=== PATIENT | male | born 1995 | race Caucasian/White ===

== ENCOUNTER 2016-09-26 09:40 | Day surgery (SDC) | payer OTHER ==
--- NOTE | 2016-09-19 10:42 | RADIOLOGY REPORT (SQ) ---
EXAM DESCRIPTION: CHEST PA/LATERAL COMPLETED DATE/TIME: 09/19/2016 10:27 am REASON FOR STUDY: PRE OP COMPARISON: None. EXAM PARAMETERS: NUMBER OF VIEWS: two views TECHNIQUE: Digital Frontal and Lateral radiographic views of the chest acquired. RADIATION DOSE: NA LIMITATIONS: none FINDINGS: LUNGS AND PLEURA: No opacities, masses or pneumothorax. No pleural effusion. What appears to be a small granuloma is present in the right upper lobe. MEDIASTINUM AND HILAR STRUCTURES: No masses or contour abnormalities. HEART AND VASCULAR STRUCTURES: Heart normal size. No evidence for failure. BONES: No acute findings. HARDWARE: None in the chest. OTHER: No other significant finding. IMPRESSION: NO SIGNIFICANT RADIOGRAPHIC FINDING IN THE CHEST. TECHNICAL DOCUMENTATION: JOB ID: [id number] [employer]- All Rights Reserved
[2016-09-19 11:13] LABS: ABSOLUTE EOSINOPHILS # (AUTO) 0.1 10^3/uL (0.0-0.6); ABSOLUTE LYMPHOCYTES (AUTO) 2.3 10^3/uL (0.5-4.7); ABSOLUTE MONOCYTES (AUTO) 0.7 10^3/uL (0.1-1.4); ABSOLUTE NEUT (AUTO) 4.3 10^3/uL (1.7-8.2); BASOPHILS % (AUTO) 0.4 % (0-2); EOSINOPHILS % (AUTO) 0.9 % (0-6); HEMOGLOBIN 16.6 g/dL (13.5-17.0); HGB HCT DIFFERENCE 2.8; LYMPHOCYTES % (AUTO) 31.5 % (13-45); MEAN CORPUSCULAR HEMOGLOBIN 31.4 pg (27.0-33.4); MEAN CORPUSCULAR HGB CONC 35.2 g/dL (32.0-36.0); MEAN CORPUSCULAR VOLUME 89 fl (80-97); MONOCYTES % (AUTO) 9.1 % (3-13); RED BLOOD COUNT 5.28 10^6/uL (4.35-5.55); RED CELL DISTRIBUTION WIDTH 12.3 % (11.5-14.0); SEGMENTED NEUTROPHILS % (AUTO) 58.1 % (42-78); WHITE BLOOD COUNT 7.3 10^3/uL (4.0-10.5)
[2016-09-19 11:14] LABS: APPEARANCE,URINE CLEAR; BILIRUBIN,URINE NEGATIVE (NEGATIVE); GLUCOSE, URINE NEGATIVE (NEGATIVE); KETONES,URINE NEGATIVE (NEGATIVE); LEUKOCYTE ESTERASE,URINE NEGATIVE (NEGATIVE); NITRITE,URINE NEGATIVE (NEGATIVE); PROTEIN,URINE NEGATIVE (NEGATIVE); URINE SPECIFIC GRAVITY 1.011; UROBILINOGEN,URINE NEGATIVE mg/dL (<2.0)
[2016-09-19 11:33] LABS: ANION GAP 12 (5-19); BLOOD UREA NITROGEN 15 mg/dL (7-20); CALCIUM 10.2 mg/dL (8.4-10.2); CARBON DIOXIDE 26 mmol/L (22-30); CHLORIDE 103 mmol/L (98-107); CREATININE RESULT 0.95 mg/dL (0.52-1.25); GLUCOSE 79 mg/dL (75-110); POTASSIUM 4.3 mmol/L (3.6-5.0); SODIUM 141.3 mmol/L (137-145)
--- NOTE | 2016-09-19 13:08 | EKG REPORT ---
SEVERITY:- NORMAL ECG - SINUS RHYTHM : Confirmed by: Dago Quintero MD 19-Sep-2016 13:07:12
[~2016-09-26 09:40] MED LIST: LIDOCAINE 0.5% INJ-PF (5 MG/ML) 50 ML SDV INJ PRN; RINGERS SOLUTION,LACTATED 1,000 ML IV PRN; VANCOMYCIN HCL 1,000 MG in DEXTROSE 5%-WATER 250 ML IV PRN
[2016-09-26] MEDS ORDERED: DEXAMETHASONE SOD PHOSPHATE INJ 4 MG/1 ML VIAL ONE (10:03)
[2016-09-26] MEDS ORDERED: ROCURONIUM BROMIDE INJ 50 MG/5 ML VIAL IV ONE (10:03)
[2016-09-26] MEDS ORDERED: GLYCOPYRROLATE INJ 0.4 MG/2 ML VIAL ONE (10:03)
[2016-09-26] MEDS ORDERED: LIDOCAINE 2% INJ-PF (20 MG/ML) 10 ML AMPUL ONE (10:03)
[2016-09-26] MEDS ORDERED: KETOROLAC TROMETHAMINE 60 MG/2 ML SDV ONE (10:03)
[2016-09-26] MEDS ORDERED: ONDANSETRON HCL INJ/PF 4 MG/2 ML SDV ONE (10:03)
[2016-09-26] MEDS ORDERED: NEOSTIGMINE METHYLSULFATE 10 MG/10 ML VIAL ONE (10:03)
[2016-09-26] MEDS ORDERED: SUCCINYLCHOLINE CHLORIDE INJ 200 MG/10 ML VIAL ONE (10:03)
[2016-09-26] MEDS ORDERED: ALBUTEROL SULFATE 0.083% NEB 2.5 MG/3 ML AMPUL NEB ONE (11:02)
[2016-09-26] MEDS ORDERED: FENTANYL CITRATE INJ/PF 100 MCG/2 ML AMPUL ONE ×3 (11:42→14:57)
[2016-09-26] MEDS ORDERED: FENTANYL CITRATE INJ/PF 250 MCG/5 ML AMPULE ONE (11:42)
[2016-09-26] MEDS ORDERED: MIDAZOLAM 2 MG/2 ML INJ ONE (11:43)
[2016-09-26] MEDS ORDERED: ACETAMINOPHEN 100 ML IV ONE (11:43)
[2016-09-26] MEDS ORDERED: MORPHINE SULFATE 10 MG/ML INJ ONE (11:43)
[2016-09-26] MEDS ORDERED: PROPOFOL INJ 200 MG/20 ML VIAL IV ONE (11:43)
[2016-09-26] MEDS ORDERED: BUPIVACAINE HCL 0.5 % INJ/PF 30 ML SDV ONE (12:11)
[2016-09-26] MEDS ORDERED: EPINEPHRINE INJ/PF 1 MG/1 ML AMPULE ONE ×2 (12:11→13:49)
[2016-09-26] MEDS ORDERED: FENTANYL CITRATE INJ/PF 100 MCG/2 ML AMPUL IV PRN ×3 (12:30)
[2016-09-26] MEDS ORDERED: PROMETHAZINE HCL INJ 25 MG/1 ML VIAL IV PRN ×2 (12:30)
[2016-09-26] MEDS ORDERED: MORPHINE SULFATE 10 MG/ML INJ IV PRN (12:30)
[2016-09-26] MEDS ORDERED: OXYCODONE-ACETAMINOPHEN 5-325 MG TABLET PO PRN ×2 (12:30)
[2016-09-26] MEDS ORDERED: DIPHENHYDRAMINE HCL 50 MG/ML VIAL IV PRN (12:30)
[2016-09-26] MEDS ORDERED: MEPERIDINE HCL/PF INJ 25 MG/1 ML DISP.SYRIN IV PRN (12:30)
[2016-09-26] MEDS: FENTANYL CITRATE INJ/PF 100 MCG/2 ML AMPUL ONE ×2 (16:05→16:40)
--- NOTE | 2016-09-26 16:13 | PDOC DISCHARGE SUMMARY ---
Discharge Summary (SDC) - Discharge Final Diagnosis: Left PCL tear status post ACL reconstruction using Achilles allograft Date of Surgery: 09/26/16 Discharge Date: 09/26/16 Condition: Good Treatment or Instructions: Weight-bear as tolerated with crutches. 0-90 range of motion. Remove dressing in 4 days then okay to shower lower extremity. Okay to put a Band-Aid over incision or just simply leave it to air on dressing is removed. Follow-up in 10-14 days. Prescriptions: Oxycodone HCl/Acetaminophen [Percocet 5-325 mg Tablet] 1 - 2 tab PO ASDIR PRN # 60 tablet PRN Reason: Discharge Diet: As Tolerated Respiratory Treatments at Home: Deep Breathing/Coughing Discharge Activity: No Driving - while on narcotics, Keep Legs Elevated, No Lifting/Push/Pulling, Walk Frequently Adaptive Devices on Discharge: Axillary Crutches Report the Following to Your Physician Immediately: Shortness of Breath, Vomiting, Fever over 101 Degrees, Unusual Bleeding, Redness, Swelling, Warmth, Drainage-Yellow, Drainage-Richardson, Drainage-Green, Drainage-Foul Smelling
[2016-09-26] MEDS ORDERED: OXYCODONE-ACETAMINOPHEN 5-325 MG TABLET ONE (18:09)
[2016-09-26 19:31] VITALS: BP 132/67
--- NOTE | 2016-10-04 13:37 | OPERATIVE REPORT E ---
Operative Report NAME: JEM SON : 1995 AGE: 21Y DATE OF SURGERY: 09/26/2016 ROOM: PREOPERATIVE DIAGNOSIS: Left PCL tear. POSTOPERATIVE DIAGNOSIS: Left PCL tear. PROCEDURE: Left knee arthroscopy with PCL reconstruction utilizing Achilles allograft. SURGEON: SIMON GIL M.D. ANESTHESIA: General. ESTIMATED BLOOD LOSS: Less than 20 mL. TOURNIQUET TIME: 130 minutes. COMPLICATIONS: None. IMPLANTS USED: 1. Ar[employer]rex PCL TightRope. 2. An 11 x 28 BioComposite interference screw. DISPOSITION: Stable to PACU. DESCRIPTION OF PROCEDURE: The patient was brought to the operating room and successfully induced and intubated in a supine position. In the preoperative holding area the patient received antibiotics. The extremity was exsanguinated and the tourniquet was inflated at 300 mmHg. A time out was done identifying the left knee as the correct site. An #11 blade was used to start the anterolateral and anteromedial portals. Arthroscopy was done showing no other pathology except for the PCL tear. I resected the remaining PCL and exposed the medial femoral condyle. I was able then to establish my posteromedial portal and placed a cannula. I switched to a 90-degree scope and then through the posteromedial cannula was able to expose the facet of the PCL. I then removed the instrument and placed a camera in the posteromedial portal and then used the PCL guide to apply it right over the facet. I did a small medial incision over the tibia and drilled with a FlipCutter and then drilled about a 20-mm hole. On the back table the graft was prepared using the technique provided by [employer]. I then placed the PCL button and the 50-mm plug on the Achilles and had an 11-mm Achilles allograft prepared. Once the tibial tunnel was prepared, I then proceeded to do an incision of the medial femoral condyle and placed the femoral guide to drill an 11-mm diameter hole. I made sure I placed this into the trocars right over the remaining footprint. I used an 11-mm acorn reamer to do my 11-mm tunnel. A shaver was used to clean out all the debris. At this point the graft was inserted through the anteromedial portal. I had to expand the portal to allow passage of the graft. Through the tibial tunnel I had placed a FiberWire stick and passed this FiberWire and it was allowed to shuttle the bone plug portion of the graft into the tibial tunnel. I successfully was able to place the bone plug into the pre-reamed tunnel and secured it nicely and flush. I was able to see it directly through the posteromedial portal. At this point then another FiberWire was passed through the outside in to then shuttle the femoral side, and I was able to pull the graft through the femoral tunnel. Doing an anterior drawer and placing the knee at 90 degrees, I was able to then pull on the graft and place my 11 x 28 BioComposite screw, securing the graft in the femoral tunnel. Pictures were taken showing my fixation and placement of the graft. The remaining stump of the graft was then cut and then we proceeded to close the wound with 0 Vicryl, 2-0 Vicryl and then 3-0 nylon for skin. A picture was taken. A probe was used to pull on the graft and it showed good tension. At this point fluid was removed from the knee and then the wound was closed like mentioned above. Xeroform 4 x 4 dressing was applied over the incisions and then overwrapped with a soft bandage and Hamilton bandage. The patient was placed in a hinged knee brace locked at 0 to 90 degrees. The tourniquet was let down and drapes were removed, and the patient was extubated and sent to the PACU in a stable condition. DICTATING PHYSICIAN: Varun MARTINEZ [id number] PHY#: [id number] ID: [id number] JOB#: [id number] ACCT: [id number] cc:SIMON GIL M.D. >
== END 2016-09-26 19:30 | disposition home or self-care (01) ==
LOC: OROUT 09:40
PROVIDERS: ATTEND Orthopaedic Surgery
PROC: 0MUP4JZ Supplement Left Knee Bursa and Ligament with Synthetic Substitute, Percutaneous Endoscopic Approach (ICD-10-PCS; principal; 2016-09-26 11:45)
DX: M23.622 Other spontaneous disruption of posterior cruciate ligament of left knee (principal); F17.210 Nicotine dependence, cigarettes, uncomplicated; Z88.1 Allergy status to other antibiotic agents
CPT/HCPCS: 1400; 36415; 71020; 80048; 81001; 85025; 93005; 93010; J0131; J0171; J0330; J1100; J1885; J2250; J2270; J2405; J2704; J3010; J3370; J3490; J7060